=== PATIENT | male | born 1950 | race Caucasian/White ===

== ENCOUNTER → 2017-07-17 | Outpatient (CLI) | payer MEDICARE ==
[~2017-07-17] MED LIST: ALEV220T14 PO; AMLO5TAB2 PO; ECASA81 PO; FLUT1SPR5 EACH NARE; HYDR-3580 PO; LISI20TA PO; MULTTAB22 PO; SIMV80TA PO
[2017-07-17 08:40] LABS: HEMATOCRIT 43.3 % (39.0-51.0); HEMOGLOBIN 15.1 GM/DL (13.0-17.0); MEAN CELL VOLUME 93.5 FL (80.0-100.0); MEAN CORPUSCULAR HEMOGLOBIN 32.7 PG (27.0-34.0); MEAN CORPUSCULAR HGB CONC 34.9 % (32.0-36.0); MEAN PLATELET VOLUME 8.4 FL (7.0-11.0); PLATELET COUNT 169 TH/MM3 (150-450); RED BLOOD COUNT 4.63 MIL/MM3 (4.50-5.90); RED CELL DISTRIBUTION WIDTH 12.8 % (11.6-17.2); WHITE BLOOD COUNT 5.1 TH/MM3 (4.0-11.0)
[2017-07-17 08:57] LABS: BICARBONATE 30.7 MEQ/L (21.0-32.0); CALCIUM 9.3 MG/DL (8.5-10.1); CREATININE 0.82 MG/DL (0.60-1.30)
[2017-07-17 09:54] LABS: BILIRUBIN, URINE NEG (NEG); BLOOD, URINE NEG (NEG); GLUCOSE,URINE NEG (NEG); KETONE, URINE NEG (NEG); MUCUS URINE FEW /lpf (OCC); NITRITE,URINE NEG (NEG); PH, URINE 5.5 (5.0-8.5); URINE COLOR YELLOW (YELLW/STRAW); URINE LEUKOCYTE ESTERASE NEG (NEG)
== END ==
LOC: CPRE 08:11
PROVIDERS: ATTEND Orthopaedic Surgery
DX: Z01.812 Encounter for preprocedural laboratory examination (principal); M17.12 Unilateral primary osteoarthritis, left knee; M79.609 Pain in unspecified limb; I10 Essential (primary) hypertension
CPT/HCPCS: 36415; 80048; 81001; 85027; 85610; 85730

== ENCOUNTER 2017-07-28 05:25 | Inpatient (IN) | payer MEDICARE ==
[~2017-07-28] VITALS: Ht 185.4 cm; Wt 110.8 kg
[~2017-07-28 05:25] MED LIST changes: -ECASA81 PO; -HYDR-3580 PO
[2017-07-28] MEDS ORDERED: CHLORHEXIDINE GLUCONATE 2 % 1 PACK (2 CLOTHS) TOPICAL PRN (06:00)
[2017-07-28] MEDS ORDERED: LACTATED RINGER'S 1000 ML IV PRN (06:00)
[2017-07-28] MEDS ORDERED: SODIUM CHLORID 0.9% 500 ML IV PRN (06:00)
[2017-07-28] MEDS ORDERED: CHLORHEXIDINE GLUCONATE 4% SOLN 120 ML BTL TOPICAL SCH (06:00)
[2017-07-28] MEDS ORDERED: METOPROLOL TARTRATE 25 MG TAB PO PRN (06:00)
[2017-07-28] MEDS ORDERED: POVIDONE IODINE 5% (ANTISEPSIS KIT) 4 APPLICATIONS EACH NARE PRN (06:00)
[2017-07-28] MEDS ORDERED: GENTAMICIN SULFATE 80 MG/2 ML VIAL ONE (06:08)
[2017-07-28] MEDS ORDERED: ACETAMINOPHEN 1000 MG/100 ML 100 ML IV ONE (06:21)
[2017-07-28] MEDS ORDERED: PROPOFOL 500 MG/50 ML INJ 50 ML ONE (06:21)
[2017-07-28] MEDS ORDERED: BUPIVACAINE LIPOSOME PF 1.3% 20 ML VIAL ONE (06:22)
[2017-07-28] MEDS ORDERED: MIDAZOLAM HCL 2 MG/2 ML VIAL ONE (06:22)
[2017-07-28] MEDS ORDERED: FAMOTIDINE 20 MG/2 ML VIAL ONE (06:22)
[2017-07-28] MEDS ORDERED: ECASA81 PO (06:57)
[2017-07-28] MEDS ORDERED: MORPHINE SULFATE 4 MG/ML INJ IV PUSH PRN (07:00)
[2017-07-28] MEDS ORDERED: EXPAREL PERI-ARTICULAR INJECTION (TOTAL VOL. 100 ML) P-ARTICULR SCH ×2 (07:00)
[2017-07-28] MEDS ORDERED: ONDANSETRON HCL 4 MG/2 ML VIAL IVP PRN (07:00)
[2017-07-28] MEDS ORDERED: SODIUM CHLORIDE 0.9% IV SCH ×2 (07:00→10:00)
[2017-07-28] MEDS ORDERED: TRANEXAMIC ACID IV SCH ×2 (07:00→10:00)
[2017-07-28] MEDS ORDERED: MAGNESIUM HYDROXIDE SUSP 30 ML CUP PO PRN (07:00)
[2017-07-28] MEDS ORDERED: ZOLPIDEM TARTRATE 5 MG TAB PO PRN (07:00)
[2017-07-28] MEDS ORDERED: ACETAMINOPHEN/HYDROcodone 325 MG/7.5 MG TAB PO PRN (07:00)
[2017-07-28] MEDS ORDERED: TRANEXAMIC ACID INJ 0 MG in SODIUM CHLORIDE 0.9% INJ 100 ML IV SCH (07:00)
[2017-07-28] MEDS ORDERED: Post-op Orders (for Pharmacy) XX ONE (07:00)
--- NOTE | 2017-07-28 07:00 | HHI.FF ---
Face to Face Verification Diagnosis: (1) Status post total left knee replacement Physical Therapy Gait training Knee: Total knee, Protocol: Left, Gait training, Full weight bearing Left LE Weight Bearing: WB as tolerated Left LE Range of Motion: Active ROM (AROM, AAROM, PROM. ROM goal is 0 to 135 degrees.) Nursing Nursing: Dressing changes (to start on postop day 7.) Dressing Changes: Daily dressing change (to start on postop day 7.), Coverderm/ [place] Additional Instructions Remove steristrips on postop day 14. I have seen patient Narendra Solano on 07/28/17. My clinical findings support the need for the requested home health care services because: Ltd mobility - disease progression Limited ability to care for self High risk of falls I certify that my clinical findings support that this patient is homebound because: Post-op weakness Unsteady gait/balance Unsafe to leave home unassisted Cely Soto MD (Charles) Jul 28, 2017 07:00
[2017-07-28] MEDS: ceFAZolin 2 GM PREMIX 50 ML IV SCH ×2 (08:57→08:58)
[2017-07-28] MEDS: ATORVASTATIN 40 MG TAB PO SCH (09:00)
[2017-07-28] MEDS: LISINOPRIL 20 MG TAB PO SCH (09:00)
[2017-07-28] MEDS: FLUTICASONE PROPIONATE 50 MCG/ACT 16 GM NASAL SPRAY NASAL SCH ×2 (09:00→22:06)
[2017-07-28] MEDS: MULTIVITAMINS/MINERALS THERAPEUTIC TAB PO SCH (09:00)
[2017-07-28] MEDS: HYDROCHLOROTHIAZIDE 25 MG TAB PO SCH (09:00)
[2017-07-28] MEDS ORDERED: NON-FORMULARY DRUG (Lisinopril-Hctz 1 TAB) PO SCH (09:00)
--- NOTE | 2017-07-28 10:15 | HHI.PR ---
Immediate Post Op Note Procedure Date: Jul 28, 2017 Pre Op Diagnosis: (1) Primary osteoarthritis of left knee Post Op Diagnosis: (1) Primary osteoarthritis of left knee Surgeon: Jose Elias Soto M.D. Teacher Of The Sight Impaired(s): JOSÉ Barba Procedure: Left total knee arthroplasty with Jet Triathlon prosthesis (uncemented) Findings: There is severe osteoarthritis in the left knee with loss of articular cartilage to bone on bone in multiple surfaces. There was extreme eburnation particularly in the medial compartment. There are osteophytes and tricompartmental. The quality was extremely hard requiring alteration of techniques in order to perform the procedure. Specimen(s) removed: None Estimated blood loss: 450 mL Anesthesia: General, Regional Block (adductor canal block), Spinal, Local ( bupivacaine liposomal) Drains: Hemovac IVF Patient to: PACU Patient Condition: Good Implant/Devices: SEE IMPLANT LOG (if applicable) Date/Time of Procedure: SEE SURGICAL CARE RECORD Cely Soto MD (Charles) Jul 28, 2017 10:15
--- NOTE | 2017-07-28 10:23 | PD.OP ---
Operative Report Date of Surgery: Jul 28, 2017 Preoperative Diagnosis: (1) Primary osteoarthritis of left knee Postoperative Diagnosis: (1) Primary osteoarthritis of left knee Procedure: Left total knee arthroplasty with Jet Triathlon prosthesis (uncemented) Anesthesia: Spinal with supplemental adductor canal block and local with bupivacaine liposomal. Secondary general with LMA Surgeon: Jose Elias Soto M.D. Guide Cruise(s): JOSÉ Barba Operation and Findings: Indications and Findings: This 67-year-old man has had 6 years of left knee pain which has been nonresponsive to conservative measures including anti- inflammatory agents, intra-articular corticosteroids and ambulatory aids. His ambulation tolerance is markedly limited. He has difficulty with activities of daily living. Physical findings show degenerative varum on the left with crepitation, and effusion and palpable osteophytes. X-rays showed severe osteoarthritis going to [id number] in the medial compartment with eburnation and osteophytes. Operative findings were consistent with the radiographic findings except that there was extremely hard bone which made cutting the bone very difficult requiring secondary passes. There was extreme eburnation. This was primarily posterior medial joint. There are osteophytes. There was exposed subchondral bone. The prosthesis used was a [place] Triathlon prosthesis. The femur was a size 7 cruciate retaining uncemented. The tibial baseplate was a size 7 Tritanium with a 13 mm cruciate retaining X3 polyethylene spacer. The patella was a size 38 mm asymmetric uncemented. The patient was brought to the clean-air operating suite. A spinal anesthetic was administered as well as a regional anesthetic by abductor canal block. The position was supine with a small bolster under the hip on the operative side. A pneumatic tourniquet was applied to the upper thigh. The lower extremity was then prepped with alcohol, Hibiclens and ChloraPrep and draped in the usual manner with the knee draped free. An appropriate timeout procedure was carried out. An incision was made from about 3 fingerbreadths above the superior medial pole of patella down the tibial tubercle on the medial side. The incision was deepened through the subcutaneous tissue to the retinacular structures which were exposed medially and laterally. A medial retinacular incision was then made from the superior middle pole of patella down the tibial tubercle and up into the quadriceps tendon splitting it longitudinally and the medial one third. The patella was reflected. The infrapatellar fat pad was debulked. The anterior cruciate ligament was excised. Medial and lateral meniscectomies were initiated. Fenestrations were made in the distal femur and proximal tibia for intramedullary referencing guides. The distal femoral cutting guide and jig were then assembled for a 5, 8 mm cut. When this was fit position and placed cutting block was stabilized with pins. The jig was removed. The distal femoral cut was then completed with the oscillating saw. The sizing guide was then positioned in place along Whites[place] line and the epicondylar axis and stabilized with pins. The femoral size was then determined as noted above. The 4-in-1 cutting block was then positioned in place. Anterior and posterior cuts were made followed by posterior and anterior chamfer cuts taking care to prevent injury to ligamentous structures. Osteophytes were then trimmed from the distal femur. A bone plug was then placed into the fenestration of the distal femur. The proximal tibia was then exposed. The medial and lateral meniscectomies were completed. The extramedullary proximal tibial cutting guide was then positioned in place and stabilized for rotation. The depth of cut was then verified with a stylus off the lateral side. The cutting block was stabilized with pins. The jig was removed. The depth of cut was then verified and adjusted appropriately with the use of the spacer block. The proximal tibial cut was then made with the oscillating saw taking care to prevent injury to neurovascular and ligamentous structures. Proximal tibial bone was removed. After reevaluating this, it was found that the cut was in appropriate. This needed to be readjusted several times in order to get an adequate posterior cut because of the extreme eburnation in the posterior medial tibia. Local anesthetic was administered with Exparel in the posterior capsule. The tibial baseplate trial was then positioned in place. After verifying the appropriate size, the base plate trial was positioned in place along with its spacer. The femoral component was then impacted into place. The alignment was checked. The tibial baseplate was then pinned in place on the tibia. Attention was directed to the patella. The patella drill guide was positioned in place for the appropriate sized patella. Patellar drilling was then carried out. The trial patella was positioned in place. The knee was taken through a range of motion which was easily 0 extension to 150. The patella trial was removed. The femoral drill holes were made. The femoral trials were removed. The tibial spacer was removed. A bone plug was placed into the proximal tibia. The tibial punch was impacted through the proximal tibial punch guide. This was all removed followed by placement of the tibial drill guide. The tibial drill holes were then made. The guide was removed. The cut ends of bone were then cleaned with pulse lavage. The tibial baseplate was then impacted into place and seated appropriately. The spacer was inserted. The the femoral component was then impacted into place and seated appropriately. The patella component was then seated with the patellar device and tightened appropriately. The knee was taken through a range of motion which was comparable to the previous range of motion with excellent stability in flexion and extension and appropriate patellofemoral tracking. The remainder of the Exparel was then injected throughout the knee as a local anesthetic. Drains were brought out the superior lateral aspect of the suprapatellar pouch. Wound closure then commenced using 0 Vicryl interrupted [id number] sutures for the capsular and fascial structures, 2-0 Vicryl interrupted simple sutures with buried knots for the subcutaneous tissues and 4- 0 Monocryl, tenuous subcuticular closure for the skin. The wound was then dressed with Steri-Strips followed by Optifoam silver impregnated dressing. Sterile soft roll with a cooling pad and Sylvain bandage from the base of the toes to mid thigh were then applied. Patient was then transferred from the operating room to the recovery room in satisfactory condition having tolerated procedure well. Counts are correct. Specimens: None. Estimated blood loss: 400 mL Cely Soto MD (Charles) Jul 28, 2017 10:23
[2017-07-28] MEDS ORDERED: HYDR-3580 PO (10:24)
[2017-07-28] MEDS ORDERED: DO NOT ADM ANY ANTICOAGULANT DRUGS PRN (10:48)
[2017-07-28] MEDS ORDERED: *morphine SULFATE 4 MG/ML PERIprocedure ONLY ONE (11:23)
[2017-07-28] MEDS: LACTATED RINGER'S 1000 ML INJ 1,000 ML IV SCH (11:32)
--- NOTE | 2017-07-28 11:58 | RADRPT ---
EXAM DATE/TIME: 07/28/2017 11:00 [place] COMPARISON: No previous studies available for comparison. INDICATIONS : Post op left knee MEDICAL HISTORY : None. SURGICAL HISTORY : None. ENCOUNTER: Initial ACUITY: 1 day PAIN SCORE: 0/10 LOCATION: Left knee FINDINGS: There is total knee prosthesis in place well-seated with anterior overlying surgical drains. CONCLUSION: Total knee prosthesis well seated Toribio Rascon MD on July 28, 2017 at 11:54 Board Certified Radiologist. This report was verified electronically.
[2017-07-28] MEDS ORDERED: PHENYLEPHRINE HCL 10 MG/ML VIAL IV ONE (12:00)
[2017-07-28] MEDS ORDERED: LIDOCAINE HCL 1% PF 5 ML SYRINGE OTHER ONE (12:00)
[2017-07-28] MEDS ORDERED: ePHEDrine/NS 25 MG/5 ML SYRINGE IV ONE (12:00)
[2017-07-28] MEDS ORDERED: GLYCOPYRROLATE 1 MG/5 ML SYRINGE IV PUSH ONE (12:00)
[2017-07-28] MEDS ORDERED: NEOSTIGMINE 5 MG/5 ML SYRINGE IV PUSH ONE (12:00)
[2017-07-28] MEDS ORDERED: DEXAMETHASONE SOD PHOS 4 MG/ML VIAL IV ONE (12:00)
[2017-07-28] MEDS ORDERED: ONDANSETRON HCL 4 MG/2 ML VIAL IV PUSH ONE (12:00)
[2017-07-28] MEDS ORDERED: KETOROLAC TROMETHAMINE 30 MG/ML (IVP) VIAL IV PUSH ONE (12:00)
[2017-07-28] MEDS ORDERED: LACTATED RINGER'S 1000 ML INJ 1,000 ML IV ONE (12:00)
[2017-07-28] MEDS ORDERED: PHENYLEPH/NS 1000 MCG/10 ML SYR IV ONE (12:00)
[2017-07-28 15:30] VITALS: BP 127/72; PULSE 94; RESP 18; TEMP 98; O2SAT 94
--- NOTE | 2017-07-28 17:52 | PD.CONS ---
[facility] By Medical management Reason for Consult Dr. Soto Primary Care Physician Tatiana (Shemar) MD Jean-Claude Diagnoses: History of Present Illness This is a 67-year-old male past medical history of hypertension and hyperlipidemia who presented with elective left total knee arthroplasty with [place] Triathlon prosthesis (uncemented) due to severe left knee osteoarthritis. [facility] consulted for medical management. Patient seen after surgery in the PACU waiting for a bed on the sixth floor. He has no complaints. He stated that he is doing well. I reviewed his medical history and patient stated that he has no concerns and has been relatively well. All other review system reviewed and negative. Past Family Social History Allergies: Coded Allergies: No Known Allergies (Unverified , 07/28/17) Past Medical History Hypertension Hyperlipidemia Varicose vein Past Surgical History Hernia repair Right leg vein stripping Allergic rhinitis Reported Medications Reported Meds & Active Scripts Active Hydrocodone-Acetamin 7.5-325 (Hydrocodone/Acetaminophen) 7.5 Mg-325 Mg Tablet 1 Tab PO Q4H PRN Reported Aleve Arthritis (Naproxen Sodium) 220 Mg Tab 220 Mg PO BID PRN Multi For Him (Multiple Vitamins W/ Minerals) 0.4 Mg-2 Mg-250 Mcg Tab 0.4 Mg PO DAILY Flonase Nasal [place] (Fluticasone Nasal [place]) 50 Mcg/Act [place] 50 Mcg EACH NARE BID Amlodipine (Amlodipine Besylate) 5 Mg Tab 5 Mg PO HS Simvastatin 80 Mg Tab 80 Mg PO DAILY Lisinopril-Hctz 20-12.5 Mg Tab 1 Tab PO DAILY Active Ordered Medications Current Medications Lactated Ringer's 1,000 ml @ 30 mls/hr Q24H PRN IV SEE LABEL COMMENTS Last administered on 07/28/17at 06:00; Start 07/28/17 at 06:00; Stop 07/31/17 at 05:59 Sodium Chloride 500 ml @ 30 mls/hr [id number] PRN IV SEE LABEL COMMENTS; Start at 06:00; Stop 07/31/17 at 05:59 Metoprolol Tartrate (Lopressor) 25 mg WANIGAN CLERK PRN PO SEE LABEL COMMENTS; Start 07/28/17 at 06:00; Stop 07/31/17 at 05:59 Povidone Iodine (Betadine 5% Antisepsis Kit) 1 applic WANIGAN CLERK PRN EACH NARE SEE LABEL COMMENTS Last administered on 07/28/17at 06:08; Start 07/28/17 at 06:00 ; Stop 07/31/17 at 05:59 Chlorhexidine Gluconate (Chlorhexidine 2% Cloth) 3 pack WANIGAN CLERK PRN TOPICAL SEE LABEL COMMENTS Last administered on 07/28/17at 05:45; Start 07/28/17 at 06:00 ; Stop 07/31/17 at 05:59 Chlorhexidine Gluconate (Hibiclens 4% Top Soln) 1 applic ONCE TOPICAL ; Start at 06:00; Stop 07/31/17 at 05:59 Cefazolin Sodium/ Dextrose 50 ml @ 100 mls/hr WANIGAN CLERK IV Last administered on 07/28/17at 08:58; Start 07/28/17 at 06:00; Stop 07/29/17 at 05:59 Tranexamic Acid 1108 mg/Sodium Chloride 111.08 ml @ 200 mls/ hr ONCE IV Last administered on 07/28/17at 09:00; Start 07/28/17 at 07:00; Stop 07/28/17 at 13:00 ; Status DC Tranexamic Acid 1108 mg/Sodium Chloride 111.08 ml @ 200 mls/ hr ONCE IV Last administered on 07/28/17at 11:34; Start 07/28/17 at 10:00; Stop 07/28/17 at 16:00 ; Status DC Bupivacaine Liposome 20 ml/ Sodium Chloride 100 ml @ 200 mls/hr ONCE P- ARTICULR Last administered on 07/28/17at 09:01; Start 07/28/17 at 07:00; Stop at 13:00; Status DC Gentamicin Sulfate (Gentamicin Inj) 240 mg STK-MED ONCE .ROUTE Last administered on 07/28/17at 06:08; Start 07/28/17 at 06:08; Stop 07/28/17 at 06:09 ; Status DC Acetaminophen 100 ml @ As Directed STK-MED ONCE IV ; Start 07/28/17 at 06:21; Stop 07/28/17 at 06:22; Status DC Propofol 50 ml @ As Directed STK-MED ONCE .ROUTE ; Start 07/28/17 at 06:21; Stop 07/28/17 at 06:22; Status DC Fentanyl Citrate (fentaNYL INJ) 100 mcg STK-MED ONCE .ROUTE ; Start 07/28/17 at 06:22; Stop 07/28/17 at 06:23; Status DC Midazolam HCl (Versed Inj) 2 mg STK-MED ONCE .ROUTE ; Start 07/28/17 at 06:22; Stop 07/28/17 at 06:23; Status DC Famotidine (Pepcid Inj) 20 mg STK-MED ONCE .ROUTE ; Start 07/28/17 at 06:22; Stop 07/28/17 at 06:23; Status DC Bupivacaine Liposome (Exparel Pf 1.3% Inj) 20 ml STK-MED ONCE .ROUTE ; Start at 06:22; Stop 07/28/17 at 06:23; Status DC Amlodipine Besylate (Norvasc) 5 mg HS PO ; Start 07/28/17 at 21:00 Fluticasone Propionate (Flonase Patricio Spr) 1 spray BID NASAL ; Start 07/28/17 at 09:00 Non-Formulary Medication 1 tab DAILY PO ; Start 07/28/17 at 09:00; Status UNV Multivitamins/ Minerals Therapeutic (Theragran M Tab) 1 tab DAILY PO ; Start at 09:00 Atorvastatin Calcium (Lipitor) 40 mg DAILY PO ; Start 07/28/17 at 09:00 Lactated Ringer's 1,000 ml @ 80 mls/hr [id number] IV Last administered on at 11:32; Start 07/28/17 at 07:00 Cefazolin Sodium 1000 mg/Sodium Chloride 100 ml @ 200 mls/hr Q6H IV Last administered on 07/28/17at 18:10; Start 07/28/17 at 12:00; Stop 07/29/17 at 00:29 Miscellaneous Information (Post-op Orders (for Pharmacy)) STAT ONCE XX ; Start 07/28/17 at 07:00; Stop 07/28/17 at 07:21; Status DC Morphine Sulfate (Morphine Inj) 4 mg Q3H PRN IV PUSH BREAKTHROUGH PAIN; Start 07/28/17 at 07:00 Acetaminophen/ Hydrocodone Bitart ([place] 7.5-325 Mg) 1 tab Q4H PRN PO PAIN LESS THAN 5 ON SCALE; Start 07/28/17 at 07:00 Acetaminophen/ Hydrocodone Bitart ([place] 7.5-325 Mg) 2 tab Q4H PRN PO PAIN SCALE 5 TO 10; Start 07/28/17 at 07:00 Ketorolac Tromethamine (Toradol Inj) 15 mg Q6H IVP Last administered on at 18:10; Start 07/28/17 at 16:00; Stop 07/30/17 at 10:01 Tranexamic Acid / Sodium Chloride 100 ml @ 200 mls/hr UNSCH IV ; Start at 07:00; Stop 07/28/17 at 07:29; Status UNV Ondansetron HCl (Zofran Inj) 4 mg Q6H PRN IVP NAUSEA OR VOMITING; Start at 07:00 Docusate Sodium (Colace) 100 mg BID PO ; Start 07/29/17 at 21:00 Zolpidem Tartrate (Ambien) 5 mg HS PRN PO SLEEP; Start 07/28/17 at 07:00 Magnesium Hydroxide (Milk Of Magnesia Liq) 30 ml DAILY PRN PO MILD - MODERATE CONSTIPATION; Start 07/28/17 at 07:00 Aspirin (Ecotrin Ec) 81 mg BID PO ; Start 07/29/17 at 10:00 Lisinopril (Prinivil) 20 mg DAILY PO ; Start 07/28/17 at 09:00 Hydrochlorothiazide (Hydrodiuril) 12.5 mg DAILY PO ; Start 07/28/17 at 09:00 Miscellaneous Information ALL NURSING DEPARTME... UNSCH PRN .XX SEE LABEL COMMENTS; Start 07/28/17 at 10:48; Stop 07/29/17 at 10:47 Morphine Sulfate (*morphine INJ PERIprocedure ONLY) 4 mg STK-MED ONCE .ROUTE Last administered on 07/28/17at 11:23; Start 07/28/17 at 11:23; Stop 07/28/17 at 11:24; Status DC Lactated Ringer's 1,000 ml @ As Directed STK-MED ONCE IV ; Start 07/28/17 at 12 :00; Stop 07/28/17 at 13:19; Status DC Lidocaine HCl (Xylocaine-Mpf 1% Inj) 5 ml STK-MED ONCE OTHER ; Start 07/28/17 at 12:00; Stop 07/28/17 at 13:19; Status DC Neostigmine Methylsulfate (Prostigmine Inj) 5 mg STK-MED ONCE IV PUSH ; Start at 12:00; Stop 07/28/17 at 13:19; Status DC Glycopyrrolate (Robinul Inj) 1 mg STK-MED ONCE IV PUSH ; Start 07/28/17 at 12:00 ; Stop 07/28/17 at 13:19; Status DC Phenylephrine HCl (Neosynephrine/ NS 1000 Mcg/10ml Syr) 1,000 mcg STK-MED ONCE IV ; Start 07/28/17 at 12:00; Stop 07/28/17 at 13:19; Status DC Ephedrine Sulfate (ePHEDrine/NS 25 MG/5 ML SYR) 25 mg STK-MED ONCE IV ; Start at 12:00; Stop 07/28/17 at 13:19; Status DC Phenylephrine HCl (Neosynephrine Inj) 20 mg STK-MED ONCE IV ; Start 07/28/17 at 12:00; Stop 07/28/17 at 13:19; Status DC Ketorolac Tromethamine (Toradol Inj) 30 mg STK-MED ONCE IV PUSH ; Start at 12:00; Stop 07/28/17 at 13:19; Status DC Dexamethasone Sodium Phosphate (Decadron Inj) 8 mg STK-MED ONCE IV ; Start 07/28 at 12:00; Stop 07/28/17 at 13:19; Status DC Ondansetron HCl (Zofran Inj) 4 mg STK-MED ONCE IV PUSH ; Start 07/28/17 at 12:00 ; Stop 07/28/17 at 13:19; Status DC Family History Past family history reviewed and noncontributory. Social History Occasionally drinks alcohol on the weekends. Quit smoking tobacco in 1992. Denied illicit drug use. Physical Exam Vital Signs Vital Signs Date Time Temp Pulse Resp B/P (MAP) Pulse Ox O2 Delivery O2 Flow Rate FiO2 07/28/17 15:30 98.0 94 18 127/72 (90) 94 07/28/17 15:00 99.0 88 17 127/77 (94) 94 Room Air 07/28/17 14:00 90 16 120/71 (87) 94 Room Air 07/28/17 13:00 86 19 124/71 (88) 99 Nasal Cannula 2 07/28/17 12:00 81 13 113/68 (83) 96 Nasal Cannula 2 07/28/17 11:45 80 18 108/62 (77) 95 Nasal Cannula 2 07/28/17 11:30 78 14 100/59 (73) 95 Nasal Cannula 2 07/28/17 11:15 77 15 96/55 (69) 95 Nasal Cannula 2 07/28/17 11:00 78 17 101/57 (72) 95 Nasal Cannula 2 07/28/17 10:50 98.9 101 15 114/66 (82) 92 Nasal Cannula 2 07/28/17 06:01 99.2 100 20 140/82 (101) 96 Physical Exam GENERAL: This is a well-nourished, well-developed patient, in no apparent distress. SKIN: No rashes, ecchymoses or lesions. Cool and dry. HEAD: Atraumatic. Normocephalic. No temporal or scalp tenderness. EYES: Pupils equal round and reactive. Extraocular motions intact. No scleral icterus. No injection or drainage. ENT: Nose without bleeding, purulent drainage or septal hematoma. Throat without erythema, tonsillar hypertrophy or exudate. Uvula midline. Airway patent. NECK: Trachea midline. No JVD or lymphadenopathy. Supple, nontender, no meningeal signs. CARDIOVASCULAR: Regular rate and rhythm without murmurs, gallops, or rubs. RESPIRATORY: Clear to auscultation. Breath sounds equal bilaterally. No wheezes , rales, or rhonchi. GASTROINTESTINAL: Abdomen soft, non-tender, nondistended. No hepato-splenomegaly , or palpable masses. No guarding. MUSCULOSKELETAL: left knee in splint. NEUROLOGICAL: Awake and alert. Cranial nerves II through XII intact. Motor and sensory grossly within normal limits. Five out of 5 muscle strength in all muscle groups. Normal speech. Imaging Last Impressions Knee X-Ray 07/28/17 0646 Signed Impressions: Service Date/Time: Friday, July 28, 2017 11:00 - CONCLUSION: Total knee prosthesis well seated Toribio Rascon MD Assessment and Plan Assessment and Plan This is a 67-year-old male presented with elective surgery [facility] consulted for medical management. Severe left knee osteoarthritis -Failed conservative management. -s/p elective left total knee arthroplasty with [place] Triathlon prosthesis ( uncemented) today in 07/28/2017. -Management per orthopedic surgeon/primary team. Hypertension/hyperlipidemia -Resume home medication. DVT prophylaxis -Per primary team. patient is medically stable. He can be discharged to home with home health once cleared by orthopedic surgeon. Discussed Condition With patient Cristiane Jackson MD Jul 28, 2017 17:52
[2017-07-28] MEDS: KETOROLAC TROMETHAMINE 30 MG/ML (IVP) VIAL IVP SCH ×2 (18:10→22:06)
[2017-07-28 20:00] VITALS: BP 120/68; PULSE 89; RESP 20; TEMP 98.3; O2SAT 94
[2017-07-28 20:27] VITALS: O2SAT 94
[2017-07-28] MEDS ORDERED: amLODIPine BESYLATE 5 MG TAB PO SCH (21:00)
[2017-07-29] VITALS: BP 122/70; PULSE 80; RESP 20; TEMP 98; O2SAT 97
[2017-07-29] MEDS: KETOROLAC TROMETHAMINE 30 MG/ML (IVP) VIAL IVP SCH ×2 (03:43→09:22)
[2017-07-29 04:00] VITALS: BP 113/64; PULSE 82; RESP 20; TEMP 97.3; O2SAT 96
--- NOTE | 2017-07-29 07:23 | PD.ORT.PN ---
Subjective Post Op Day #: 1 Subjective Remarks He is doing well. He has virtually no pain. He has been out of bed. Range of Motion 0 to 92 Distance Walked 80 feet with physical therapy. Objective Vitals Vital Signs Date Time Temp Pulse Resp B/P (MAP) Pulse Ox O2 Delivery O2 Flow Rate FiO2 07/29/17 04:00 97.3 82 20 113/64 (80) 96 07/29/17 00:00 98.0 80 20 122/70 (87) 97 07/28/17 20:27 94 21 07/28/17 20:00 98.3 89 20 120/68 (85) 94 07/28/17 15:30 98.0 94 18 127/72 (90) 94 07/28/17 15:00 99.0 88 17 127/77 (94) 94 Room Air 07/28/17 14:00 90 16 120/71 (87) 94 Room Air 07/28/17 13:00 86 19 124/71 (88) 99 Nasal Cannula 2 07/28/17 12:00 81 13 113/68 (83) 96 Nasal Cannula 2 07/28/17 11:45 80 18 108/62 (77) 95 Nasal Cannula 2 07/28/17 11:30 78 14 100/59 (73) 95 Nasal Cannula 2 07/28/17 11:15 77 15 96/55 (69) 95 Nasal Cannula 2 07/28/17 11:00 78 17 101/57 (72) 95 Nasal Cannula 2 07/28/17 10:50 98.9 101 15 114/66 (82) 92 Nasal Cannula 2 I/O 07/28/17 07/28/17 07/28/17 07/29/17 07/29/17 07/29/17 07:00 15:00 23:00 07:00 15:00 23:00 Intake Total 2050 ml 891 ml 920 ml Output Total 460 ml 300 ml 650 ml Balance 1590 ml 591 ml 270 ml Intake Oral 350 ml 280 ml 220 ml IV Total 611 ml 700 ml Other 1700 ml Output Urine Total 300 ml 300 ml Stool Total 0 ml Drainage Total 110 ml 350 ml Estimated Blood Loss 350 ml # Bowel Movements 0 Imaging Last 72 hours Impressions Knee X-Ray 07/28/17 0646 Signed Impressions: Service Date/Time: Friday, July 28, 2017 11:00 - CONCLUSION: Total knee prosthesis well seated Toribio Rascon MD Objective Remarks He is resting comfortably, supine in bed, in the CPM. The neurovascular status is intact. The dressing is dry and intact. Assessment & Plan Ortho Post Op Day #: 1 Problem List: (1) Primary osteoarthritis of left knee ICD Codes: M17.12 - Unilateral primary osteoarthritis, left knee Status: Resolved (2) Status post total left knee replacement ICD Codes: Z96.652 - Presence of left artificial knee joint Plan: Continue postop care and PT. I have discussed his findings with him and his surgery. Assessment and Plan Condition: Good. Orthopedically stable. DVT prophylaxis: TEDs, aspirin, sequentials. Discharge plans: Home with home health care[]. An appointment was scheduled through the office. Prescriptions: [place] 7.5/325 Cely Soto MD (Charles) Jul 29, 2017 07:23
[2017-07-29 08:00] VITALS: BP 120/70; PULSE 80; RESP 16; TEMP 98.1; O2SAT 93
[2017-07-29] MEDS: LACTATED RINGER'S 1000 ML INJ 1,000 ML IV SCH (08:00)
--- NOTE | 2017-07-29 08:21 | HHI.DS ---
Discharge Summary Admission Date Jul 28, 2017 at 05:25 Discharge Date: Jul 29, 2017 Admitting Diagnosis Primary osteoarthritis, left knee. Diagnosis: (1) Primary osteoarthritis of left knee Diagnosis: Principal ICD Codes: M17.12 - Unilateral primary osteoarthritis, left knee Status: Resolved (2) Status post total left knee replacement Diagnosis: Principal ICD Codes: Z96.652 - Presence of left artificial knee joint Procedures Left total knee arthroplasty with [place] [employer] prosthesis (uncemented) on . Brief History This is a 67 year old male patient has had long-standing primary osteoarthritis in his left knee which has been nonresponsive to conservative measures as detailed in the history and physical examination. His physical findings included degenerative varum with palpable osteophytes, crepitation and tenderness on range of motion. He had an antalgic gait. X-ray showed severe osteoarthritis particularly in the medial compartment with loss of articular cartilage to bone on bone, eburnation and osteophytes. Imaging Last 72 hours Impressions Knee X-Ray 07/28/17 0646 Signed Impressions: Service Date/Time: Friday, July 28, 2017 11:00 - CONCLUSION: Total knee prosthesis well seated Toribio Rascon MD PE at Discharge He is resting comfortably, supine in bed, in the CPM. The neurovascular status is intact. The dressing is dry and intact. Hospital Course The patient was admitted as noted above. The above-noted procedure was then carried out on the day of admission. Prophylactic antibiotics in the form of Ancef were provided preoperatively and subsequently postoperatively according to protocols. Tranexamic acid was also provided to help with stasis. In the postanesthesia care unit DVT prophylaxis was initiated mechanically with sequentials and FANNY stockings. The following day the patient received aspirin as an anticoagulant. Physical therapy was initiated on the day of surgery. Patient ambulated well as detailed in the notes. He progressed well. Pt Condition on Discharge: Good Discharge Disposition: Disch w/ Home Health Serv Discharge Instructions Diet Instructions: As Tolerated, No Restrictions Activities You Can Perform: Full Weight Bearing, Shower Only-No Bath Activities to Avoid: Lifting/Bending, Strenuous Activity, Bathing, Driving Follow up Referrals: Orthopedics with Cely Soto MD ([facility]) New Medications: Aspirin (Aspirin ) 81 Mg Tabdr 81 MG PO BID for Prevent Blood Clot for 30 Days, #60 TAB Hydrocodone/Acetaminophen (Hydrocodone-Acetamin 7.5-325) 7.5 Mg-325 Mg Tablet 1 TAB PO Q4H PRN for PAIN SCALE 1 TO 10, #30 TAB Continued Medications: Amlodipine (Amlodipine) 5 Mg Tab 5 MG PO HS for Blood Pressure Management, #30 TAB 0 Refills Fluticasone Nasal Adolphus (Flonase Nasal Adolphus) 50 Mcg/Act Adolphus 50 MCG EACH NARE BID for Allergies, #1 BOTTLE 0 Refills Lisinopril-Hctz (Lisinopril-Hctz) 20-12.5 Mg Tab 1 TAB PO DAILY for Blood Pressure Management, #30 TAB 0 Refills Multiple Vitamins W/ Minerals (Multi For Him) 0.4 Mg-2 Mg-250 Mcg Tab 0.4 MG PO DAILY Naproxen Sodium (Aleve Arthritis) 220 Mg Tab 220 MG PO BID PRN for PAIN SCALE 1 TO 2, TAB Simvastatin (Simvastatin) 80 Mg Tab 80 MG PO DAILY for Cholesterol Management, #30 TAB 0 Refills Cely Soto MD ([facility]) Jul 29, 2017 08:21
[2017-07-29] MEDS: MULTIVITAMINS/MINERALS THERAPEUTIC TAB PO SCH (09:21)
[2017-07-29] MEDS: FLUTICASONE PROPIONATE 50 MCG/ACT 16 GM NASAL SPRAY NASAL SCH (09:22)
[2017-07-29] MEDS: ATORVASTATIN 40 MG TAB PO SCH (09:22)
[2017-07-29] MEDS: LISINOPRIL 20 MG TAB PO SCH (09:23)
[2017-07-29] MEDS: HYDROCHLOROTHIAZIDE 25 MG TAB PO SCH (09:23)
[2017-07-29] MEDS: ACETAMINOPHEN/HYDROcodone 325 MG/7.5 MG TAB PO PRN ×2 (09:23→13:46)
[2017-07-29 09:28] LABS: HEMATOCRIT 35.7 % (39.0-51.0); HEMOGLOBIN 12.4 GM/DL (13.0-17.0)
[2017-07-29] MEDS ORDERED: ASPIRIN EC 81 MG TABEC PO SCH (10:00)
[2017-07-29 10:51] VITALS: O2SAT 93
[2017-07-29] MEDS ORDERED: DOCUSATE SODIUM 100 MG CAP PO SCH (21:00)
== END 2017-07-29 14:25 | disposition home health service (06) | DRG 470 ==
LOC: HSDI 05:25 → EDUNIT# 07:00 → N06B 15:34
PROVIDERS: ADMIT Orthopaedic Surgery; ATTEND Orthopaedic Surgery
PROC: 3E0T3BZ Introduction of Anesthetic Agent into Peripheral Nerves and Plexi, Percutaneous Approach (ICD-10-PCS; 2017-07-28)
PROC: 0SRD0JA Replacement of Left Knee Joint with Synthetic Substitute, Uncemented, Open Approach (ICD-10-PCS; principal; 2017-07-28 06:42)
DX: M17.12 Unilateral primary osteoarthritis, left knee (principal); I10 Essential (primary) hypertension; E78.5 Hyperlipidemia, unspecified; M21.162 Varus deformity, not elsewhere classified, left knee; H91.90 Unspecified hearing loss, unspecified ear; E66.9 Obesity, unspecified; Z68.32 Body mass index [BMI] 32.0-32.9, adult; J30.9 Allergic rhinitis, unspecified; Z87.891 Personal history of nicotine dependence; Z85.828 Personal history of other malignant neoplasm of skin
CPT/HCPCS: 73560; 85014; 85018; 86850; 86900; 86901; 94150; C1776; C9290; J0131; J0690; J1100; J1580; J1885; J2250; J2270; J2370; J2405; J2710; J3010; J7120